=== PATIENT | female | born 1980 | race Hispanic/Latino ===

== ENCOUNTER 2021-04-17 08:07 | Outpatient (CLI) | payer OTHER | END 2021-04-17 08:08 | disposition home or self-care (01) | LOC: CSHMAMMO 08:07 | PROVIDERS: ATTEND Obstetrics & Gynecology | DX: N64.59 Other signs and symptoms in breast (principal) | CPT/HCPCS: G0279 ==

== ENCOUNTER 2022-04-28 08:40 | Outpatient (CLI) | payer BC | END 2022-04-28 08:41 | disposition home or self-care (01) | LOC: CSHCT 08:40 | PROVIDERS: ATTEND Physician Assistant Medical | DX: R10.30 Lower abdominal pain, unspecified (principal); K62.5 Hemorrhage of anus and rectum; Z90.49 Acquired absence of other specified parts of digestive tract | CPT/HCPCS: 74177 ==

== ENCOUNTER 2022-05-12 08:54 | Outpatient (CLI) | payer BC | END 2022-05-12 08:55 | disposition home or self-care (01) | LOC: CSHLAB 08:54 | PROVIDERS: ATTEND Otolaryngology Otolaryngic Allergy | DX: Z01.812 Encounter for preprocedural laboratory examination (principal); Z20.822 Contact with and (suspected) exposure to COVID-19; E04.9 Nontoxic goiter, unspecified | CPT/HCPCS: 85014; U0003; U0005 ==

== ENCOUNTER 2022-05-17 06:29 | Day surgery (SDC) | payer BC ==
[2022-05-13 09:44] VITALS: BMI 30.2
[2022-05-17] MEDS ORDERED: Lidocaine 1% MPF 2 ML VIAL ONE (08:53)
[2022-05-17] MEDS ORDERED: PROPOFOL 20 ML ONE ×2 (10:55→11:12)
[2022-05-17] MEDS ORDERED: Fentanyl 100 MCG/2 ML VIAL ONE ×2 (10:56→12:31)
[2022-05-17] MEDS ORDERED: CEFAZOLIN 1 GM VIAL ONE (10:57)
[2022-05-17] MEDS ORDERED: Lidocaine 1% w/Epinephrine 1:100K 20 ML VIAL ONE (10:59)
[2022-05-17] MEDS ORDERED: Lidocaine 1% PF 5 ML VIAL ONE ×2 (11:01)
[2022-05-17] MEDS ORDERED: Dexamethasone 20 MG/5 ML VIAL ONE (11:02)
[2022-05-17] MEDS ORDERED: Ondansetron PF 4 MG/2 ML Vial ONE ×2 (11:02→13:37)
[2022-05-17] MEDS ORDERED: Succinylcholine 200 MG/10 ml SYRINGE FS ONE (11:02)
[2022-05-17] MEDS ORDERED: Midazolam HCl 2 mg/2 ml Vial ONE (11:04)
[2022-05-17] MEDS ORDERED: PHENYLEPHRINE-NS 100 MCG/ML 10 ML SYRINGE ONE (11:20)
[2022-05-17] MEDS ORDERED: Acetaminophen/Codeine 30-300mg Tablet ONE (13:04)
== END 2022-05-17 14:25 | disposition home or self-care (01) ==
LOC: CSHSDC 06:29
PROVIDERS: ATTEND Otolaryngology Otolaryngic Allergy
PROC: 0GTH0ZZ Resection of Right Thyroid Gland Lobe, Open Approach (ICD-10-PCS; principal; 2022-05-17)
DX: E04.2 Nontoxic multinodular goiter (principal); E06.3 Autoimmune thyroiditis; K21.9 Gastro-esophageal reflux disease without esophagitis; Z79.899 Other long term (current) drug therapy
CPT/HCPCS: 88305; 88307; 88331; J0690; J1100; J2250; J2405; J2704; J3010

== ENCOUNTER 2023-05-16 20:51 | Emergency (ER) | payer BC | END 2023-05-16 22:35 | disposition home or self-care (01) | LOC: CSHERS 20:51 | DX: B02.9 Zoster without complications (principal) | CPT/HCPCS: 99282 ==